=== PATIENT | female | born 2005 | race Two or more races ===

== ENCOUNTER 2024-01-23 19:47 | Emergency (ER) | payer MEDICAID ==
[~2024-01-23] VITALS: Ht 172.7 cm; Wt 83.9 kg
[2024-01-23] MEDS ORDERED: ONDANSETRON HCL/PF 4 MG/2 ML VIAL ONE (20:29)
[2024-01-23] MEDS: MAG HYDROX/AL HYDROX/SIMETH 30 ML UDC PO ONE (20:30)
[2024-01-23] MEDS: FAMOTIDINE (20 MG) 20 MG TABLET PO ONE (20:30)
[2024-01-23] MEDS: ONDANSETRON HCL/PF 4 MG/2 ML VIAL IVP ONE (20:30)
[2024-01-23] MEDS: IV NS 0.9% 1,000 ML BAG IV ONE (20:30)
[2024-01-23] MEDS ORDERED: FAMOTIDINE (20 MG) 20 MG TABLET ONE (20:30)
[2024-01-23] MEDS ORDERED: MAG HYDROX/AL HYDROX/SIMETH 30 ML UDC ONE (20:30)
[2024-01-23 20:38] LABS: APPEARANCE,URINE Clear (CLEAR); BILIRUBIN,URINE Negative (NEGATIVE); BLOOD, URINE Negative Ery/uL (NEGATIVE); COLOR,URINE YELLOW (YELLOW); KETONES,URINE Negative (NEGATIVE); LEUKOCYTE ESTERASE ,URINE Negative (NEGATIVE); NITRITE, URINE Negative (NEGATIVE); PH,URINE 8.5 (5.0-8.0); PROTEIN,URINE Negative (NEGATIVE); UGLUCOSE Negative (NEGATIVE)
[2024-01-23 20:38] LABS: BASOPHILS # (AUTO) 0.1 K/uL (0.0-0.2); BASOPHILS % (AUTO) 0.7 % (0.0-2.0); EOSINOPHILS # (AUTO) 0.1 K/uL (0.0-0.7); EOSINOPHILS % (AUTO) 0.7 % (0.0-6.0); HEMATOCRIT 40 % (33-45); HEMOGLOBIN 13.1 g/dL (11.5-14.8); LYMPHOCYTES # (AUTO) 1.8 K/uL (0.8-4.8); LYMPHOCYTES % (AUTO) 24.2 % (20.0-44.0); MEAN CORPUSCULAR HEMOGLOBIN 29 PG (26.0-33.0); MEAN CORPUSCULAR HGB CONC 33 g/dl (31.0-36.0); MEAN CORPUSCULAR VOLUME 88 fL (82-100); MONOCYTES # (AUTO) 0.6 K/uL (0.1-1.30); MONOCYTES % (AUTO) 7.5 % (2.0-12.0); NEUTROPHILS # (AUTO) 5.1 K/uL (1.8-8.9); NEUTROPHILS % (AUTO) 66.9 % (43.0-81.0); PLATELET COUNT (AUTO) 332 K/uL (150-450); RED BLOOD CELL COUNT(AUTO) 4.53 MIL/uL (4.0-5.2); RED CELL DISTRIBUTION WIDTH 13.7 % (11.5-15.0); WHITE BLOOD COUNT (AUTO) 7.6 K/uL (4.3-11.0)
[2024-01-23 20:39] LABS: PREGNANCY TEST URINE QUAL NEGATIVE (NEGATIVE)
[2024-01-23 20:40] LABS: ADD URINE CULTURE NO; BACTERIA,URINE Rare /HPF (None Seen); RBC,URINE 0-2 /HPF (0-2); SQUAMOUS EPITHELIAL CELL,UR Few /HPF (None Seen); WBC,URINE 0-2 /HPF (0-3)
[2024-01-23 20:42] LABS: CREATININE 0.6 mg/dL (0.6-1.3); POTASSIUM 4.2 mmol/L (3.5-5.1)
[2024-01-23 20:48] LABS: ALBUMIN 3.8 g/dL (3.4-5.0); BILIRUBIN,DIRECT 0.1 mg/dL (0.0-0.2); BILIRUBIN,TOTAL 0.4 mg/dL (0.2-1.0); TOTAL PROTEIN, SERUM 7.6 g/dL (6.4-8.2)
[2024-01-23] MEDS ORDERED: FAMO20TA8 PO (21:43)
[2024-01-23] MEDS ORDERED: ONDA4TAB11 PO (21:43)
[2024-01-23 21:57] VITALS: BP 120/69; TEMP 98.8; O2SAT 99
== END 2024-01-23 21:57 | disposition home or self-care (01) ==
LOC: ER 19:53
DX: R11.2 Nausea with vomiting, unspecified (principal); R10.84 Generalized abdominal pain
CPT/HCPCS: 99283; 96374; 96361; 85025; 80048; 83690; 80076; 84703; 81001; 36415; J2405; J7030

== ENCOUNTER 2024-03-13 01:33 | Emergency (ER) | payer SELFPAY ==
[~2024-03-13] VITALS: Ht 154.9 cm; Wt 72.6 kg
[~2024-03-13 01:33] MED LIST: FAMO20TA8 PO; ONDA4TAB11 PO
[2024-03-13] MEDS: IV NS 0.9% 1,000 ML BAG IV ONE (02:30)
[2024-03-13 02:37] LABS: BASOPHILS % (AUTO) 0.7 % (0.0-2.0); EOSINOPHILS # (AUTO) 0.1 K/uL (0.0-0.7); EOSINOPHILS % (AUTO) 1.9 % (0.0-6.0); HEMATOCRIT 36 % (33-45); LYMPHOCYTES # (AUTO) 1.9 K/uL (0.8-4.8); LYMPHOCYTES % (AUTO) 27.9 % (20.0-44.0); MEAN CORPUSCULAR HEMOGLOBIN 30 PG (26.0-33.0); MEAN CORPUSCULAR HGB CONC 34 g/dl (31.0-36.0); MEAN CORPUSCULAR VOLUME 89 fL (82-100); MONOCYTES # (AUTO) 0.6 K/uL (0.1-1.30); MONOCYTES % (AUTO) 8.8 % (2.0-12.0); NEUTROPHILS % (AUTO) 60.7 % (43.0-81.0); PLATELET COUNT (AUTO) 270 K/uL (150-450); RED BLOOD CELL COUNT(AUTO) 4.02 MIL/uL (4.0-5.2); RED CELL DISTRIBUTION WIDTH 13.8 % (11.5-15.0); WHITE BLOOD COUNT (AUTO) 6.6 K/uL (4.3-11.0)
[2024-03-13 02:49] LABS: CALCIUM, SERUM 8.4 mg/dL (8.5-10.1); CREATININE 0.6 mg/dL (0.6-1.3); POTASSIUM 3.7 mmol/L (3.5-5.1)
[2024-03-13 03:21] VITALS: BP 110/64; TEMP 98.4; O2SAT 97
== END 2024-03-13 03:22 | disposition home or self-care (01) ==
LOC: ER 01:38
DX: R42 Dizziness and giddiness (principal); F19.10 Other psychoactive substance abuse, uncomplicated
CPT/HCPCS: 99284; 96360; 93005; 85025; 80048; 36415; J7030